=== PATIENT | male | born 1935 | race Caucasian/White ===

== ENCOUNTER 2020-06-19 22:24 | Inpatient (IN) ==
[2020-06-20] MEDS ORDERED: Orphenadrine 60 MG/2 ML VIAL IM ONE (00:50)
[2020-06-20] MEDS ORDERED: *HR* HYDROmorphone (PF) 1 MG/ML SYRINGE IM ONE (00:50)
[2020-06-20] MEDS ORDERED: Ondansetron ODT 4 MG TAB.RAPDIS SL ONE (00:50)
[2020-06-20] MEDS ORDERED: Dexamethasone 4 MG/ML VIAL PO ONE (01:17)
[2020-06-20] MEDS ORDERED: Ondansetron ODT 4 MG TAB.RAPDIS SL PRN (03:51)
[2020-06-20] MEDS ORDERED: *HR* HYDROcodone/Acet 5/325 mg TABLET PO PRN (03:51)
[2020-06-20] MEDS ORDERED: Naloxone 0.4 MG/ML INJ IVP PRN (03:51)
[2020-06-20] MEDS ORDERED: *HR* OxyCODONE Immed Rel 5 MG TABLET PO PRN (03:51)
[2020-06-20 05:07] LABS: Bilirubin,Urine Negative (Negative); Blood,Urine Negative (Negative); Clarity,Urine Clear (Clear); Color,Urine Yellow (Yellow); Glucose,Urine (UA) Normal (Normal); Ketones,Urine Negative (Negative); Leukocyte Esterase,Urine Negative (Negative); Nitrite,Urine Negative (Negative); Protein,Urine Negative (Neg-Trace); Urobilinogen,Urine Normal (Normal)
[2020-06-20 06:08] LABS: Basophils % 0.4 %; Eosinophils # 0.1 K/mcL (0.0-0.6); Eosinophils % 0.7 %; Hematocrit 37.8 % (37.5-50.1); Hemoglobin 12.8 g/dL (12.9-16.9); Immature Granulocytes % 0.6 % (0-4); Lymphocytes # 0.5 K/mcL (0.6-4.6); Lymphocytes % 7.2 %; Mean Corpuscular HGB Conc 33.9 g/dL (31.6-35.5); Mean Corpuscular Hemoglobin 29.9 pg (28.0-33.3); Mean Corpuscular Volume 88.3 fL (83.0-100.0); Mean Platelet Volume 8.7 fL (9.4-12.4); Monocytes # 0.2 K/mcL (0.0-1.3); Monocytes % 2.6 %; Platelet Count 222 K/mcL (140-400); Red Blood Count 4.28 M/mcL (4.19-5.50); Red Cell Distribution Width 12.9 % (11.5-14.5); Segmented Neutrophils % 88.5 %; White Blood Count 6.8 K/mcL (4.3-11.1)
[2020-06-20 06:14] LABS: INR 1.1
[2020-06-20 06:17] LABS: Activated Partial Thrombo Time 32.4 Seconds (26.0-36.0)
[2020-06-20 06:27] LABS: Calcium 9.4 mg/dL (8.6-10.3); Magnesium 1.9 mg/dL (1.6-2.6); Potassium 4.5 mEq/L (3.5-5.1)
[2020-06-20] MEDS ORDERED: (Alfuzosin Hcl [Uroxatral] 10 MG Tab.Er.24h) PO SCH (09:00)
[2020-06-20] MEDS: lisinopriL 20 MG TABLET PO SCH (09:41)
[2020-06-20] MEDS: Aspirin 81 MG TAB.CHEW PO SCH (09:41)
[2020-06-20] MEDS: Ascorbic Acid 500 MG TABLET PO SCH (09:41)
[2020-06-20] MEDS: Metoprolol XL (24 HR) Succ 50 MG TAB.ER.24H PO SCH (09:41)
[2020-06-20] MEDS: Multivit/Ca/Min/Fe/FA 1 TAB TABLET PO SCH (09:41)
[2020-06-20] MEDS: Loratadine 10 MG TABLET PO SCH (09:41)
[2020-06-20] MEDS: polyethylene glycoL 3350 17 GM POWD.PACK PO SCH (09:42)
[2020-06-20] MEDS: Cyanocobalamin (B-12) 1,000 MCG TABLET PO SCH (09:42)
[2020-06-20] MEDS: (Ezetimibe [Zetia] 10 MG Tablet) PO SCH (09:42)
[2020-06-20 12:13] LABS: Basophils % 0.2 %; Hematocrit 39.6 % (37.5-50.1); Hemoglobin 13.4 g/dL (12.9-16.9); Immature Granulocytes % 0.5 % (0-4); Lymphocytes # 0.4 K/mcL (0.6-4.6); Lymphocytes % 7.1 %; Mean Corpuscular HGB Conc 33.8 g/dL (31.6-35.5); Mean Corpuscular Hemoglobin 30.2 pg (28.0-33.3); Mean Corpuscular Volume 89.2 fL (83.0-100.0); Mean Platelet Volume 8.6 fL (9.4-12.4); Monocytes # 0.2 K/mcL (0.0-1.3); Monocytes % 4.2 %; Neutrophils # 4.8 K/mcL (1.6-8.9); Platelet Count 247 K/mcL (140-400); Red Blood Count 4.44 M/mcL (4.19-5.50); Red Cell Distribution Width 12.7 % (11.5-14.5); White Blood Count 5.5 K/mcL (4.3-11.1)
[2020-06-20] MEDS: Acetaminophen 325 MG TABLET PO PRN (17:00)
[2020-06-20] MEDS: MethylPREDNISolone 40 MG/ML VIAL IVP SCH (18:10)
[2020-06-20 20:15] LABS: Basophils % 0.1 %; Eosinophils % 0.1 %; Hemoglobin 12.9 g/dL (12.9-16.9); Immature Granulocytes % 0.5 % (0-4); Lymphocytes # 0.6 K/mcL (0.6-4.6); Lymphocytes % 6.5 %; Mean Corpuscular HGB Conc 33.9 g/dL (31.6-35.5); Mean Corpuscular Hemoglobin 30.1 pg (28.0-33.3); Mean Corpuscular Volume 88.6 fL (83.0-100.0); Mean Platelet Volume 8.8 fL (9.4-12.4); Monocytes # 0.6 K/mcL (0.0-1.3); Monocytes % 6.8 %; Platelet Count 257 K/mcL (140-400); Red Blood Count 4.29 M/mcL (4.19-5.50); White Blood Count 9.3 K/mcL (4.3-11.1)
[2020-06-20] MEDS: *HR* HYDROcodone/Acet 5/325 mg TABLET PO PRN (21:45)
[2020-06-21] MEDS ORDERED: Haloperidol Lactate 5 MG/ML VIAL IM ONE (03:34)
[2020-06-21] MEDS: *HR* Enoxaparin 40 MG/0.4 ML SYRINGE SQ SCH ×2 (05:24→06:35)
[2020-06-21] MEDS: MethylPREDNISolone 40 MG/ML VIAL IVP SCH (05:24)
[2020-06-21] MEDS: *HR* HYDROcodone/Acet 5/325 mg TABLET PO PRN ×3 (06:14→20:47)
[2020-06-21] MEDS ORDERED: predniSONE 20 MG TABLET PO SCH (09:00)
[2020-06-21] MEDS: Aspirin 81 MG TAB.CHEW PO SCH (09:08)
[2020-06-21] MEDS: lisinopriL 20 MG TABLET PO SCH (09:08)
[2020-06-21] MEDS: Ascorbic Acid 500 MG TABLET PO SCH (09:08)
[2020-06-21] MEDS: Loratadine 10 MG TABLET PO SCH (09:08)
[2020-06-21] MEDS: Multivit/Ca/Min/Fe/FA 1 TAB TABLET PO SCH (09:08)
[2020-06-21] MEDS: Cyanocobalamin (B-12) 1,000 MCG TABLET PO SCH (09:08)
[2020-06-21] MEDS: Metoprolol XL (24 HR) Succ 50 MG TAB.ER.24H PO SCH (09:08)
[2020-06-21] MEDS: polyethylene glycoL 3350 17 GM POWD.PACK PO SCH (09:08)
[2020-06-21] MEDS: (Ezetimibe [Zetia] 10 MG Tablet) PO SCH (09:09)
[2020-06-21 11:34] LABS: Hematocrit 38.2 % (37.5-50.1); Mean Corpuscular Hemoglobin 30.2 pg (28.0-33.3); Mean Corpuscular Volume 88.6 fL (83.0-100.0); Platelet Count 278 K/mcL (140-400); Red Blood Count 4.31 M/mcL (4.19-5.50); Red Cell Distribution Width 12.9 % (11.5-14.5); White Blood Count 11.2 K/mcL (4.3-11.1)
[2020-06-21 11:55] LABS: Albumin 4.2 g/dL (3.5-5.7); Albumin/Globulin Ratio 1.8 (1.1-2.2); Bilirubin,Total 0.8 mg/dL (0.3-1.0); Calcium 9.8 mg/dL (8.6-10.3); Globulin 2.4 g/dL (2.4-3.5); Magnesium 1.9 mg/dL (1.6-2.6); Potassium 4.5 mEq/L (3.5-5.1); Total Protein 6.6 g/dL (6.4-8.9)
[2020-06-21] MEDS ORDERED: Haloperidol Lactate 5 MG/ML VIAL IM PRN (15:07)
[2020-06-21] MEDS: predniSONE 20 MG TABLET PO SCH (16:42)
[2020-06-21] MEDS: Melatonin 3 MG TABLET PO SCH (20:45)
[2020-06-21] MEDS: QUEtiapine Fumarate 25 MG TABLET PO SCH (20:48)
[2020-06-22] MEDS: *HR* Enoxaparin 40 MG/0.4 ML SYRINGE SQ SCH (06:56)
[2020-06-22] MEDS: Aspirin 81 MG TAB.CHEW PO SCH (09:45)
[2020-06-22] MEDS: Metoprolol XL (24 HR) Succ 50 MG TAB.ER.24H PO SCH (09:45)
[2020-06-22] MEDS: Loratadine 10 MG TABLET PO SCH (09:45)
[2020-06-22] MEDS: lisinopriL 20 MG TABLET PO SCH (09:45)
[2020-06-22] MEDS: Ascorbic Acid 500 MG TABLET PO SCH (09:45)
[2020-06-22] MEDS: Multivit/Ca/Min/Fe/FA 1 TAB TABLET PO SCH (09:45)
[2020-06-22] MEDS: predniSONE 20 MG TABLET PO SCH (09:45)
[2020-06-22] MEDS: Cyanocobalamin (B-12) 1,000 MCG TABLET PO SCH (09:45)
[2020-06-22] MEDS: polyethylene glycoL 3350 17 GM POWD.PACK PO SCH (09:46)
[2020-06-22] MEDS: Acetaminophen 325 MG TABLET PO PRN (15:28)
[2020-06-22] MEDS: Melatonin 3 MG TABLET PO SCH (22:07)
[2020-06-22] MEDS: QUEtiapine Fumarate 25 MG TABLET PO SCH (22:07)
[2020-06-23] MEDS: *HR* HYDROcodone/Acet 5/325 mg TABLET PO PRN ×2 (05:37→21:07)
[2020-06-23] MEDS: *HR* Enoxaparin 40 MG/0.4 ML SYRINGE SQ SCH (05:38)
[2020-06-23 05:55] LABS: Basophils % 0.3 %; Eosinophils % 0.3 %; Hemoglobin 13.8 g/dL (12.9-16.9); Immature Granulocytes % 0.6 % (0-4); Lymphocytes # 1.6 K/mcL (0.6-4.6); Lymphocytes % 15.7 %; Mean Corpuscular HGB Conc 33.7 g/dL (31.6-35.5); Mean Corpuscular Hemoglobin 29.9 pg (28.0-33.3); Mean Corpuscular Volume 88.7 fL (83.0-100.0); Mean Platelet Volume 8.9 fL (9.4-12.4); Monocytes # 1.3 K/mcL (0.0-1.3); Monocytes % 12.7 %; Neutrophils # 7.1 K/mcL (1.6-8.9); Platelet Count 309 K/mcL (140-400); Red Blood Count 4.62 M/mcL (4.19-5.50); Red Cell Distribution Width 12.9 % (11.5-14.5); Segmented Neutrophils % 70.4 %
[2020-06-23 06:15] LABS: BUN/Creatinine Ratio 31 (6-26); Blood Urea Nitrogen 39 mg/dL (8-23); Calcium 9.9 mg/dL (8.6-10.3); Carbon Dioxide 27 mEq/L (23-29); Chloride 100 mEq/L (98-107); Glucose 109 mg/dL (70-105); Osmolality,Calculated 290 (280-300); Potassium 4.4 mEq/L (3.5-5.1); Sodium 135 mEq/L (136-145); eGFR For African Americans > 60 (> 60); eGFR For Non-African Americans 54 (> 60)
[2020-06-23] MEDS: Loratadine 10 MG TABLET PO SCH (08:41)
[2020-06-23] MEDS: predniSONE 20 MG TABLET PO SCH (08:41)
[2020-06-23] MEDS: Ascorbic Acid 500 MG TABLET PO SCH (08:41)
[2020-06-23] MEDS: Aspirin 81 MG TAB.CHEW PO SCH (08:41)
[2020-06-23] MEDS: Cyanocobalamin (B-12) 1,000 MCG TABLET PO SCH (08:41)
[2020-06-23] MEDS: polyethylene glycoL 3350 17 GM POWD.PACK PO SCH ×2 (08:42→08:51)
[2020-06-23] MEDS: Metoprolol XL (24 HR) Succ 50 MG TAB.ER.24H PO SCH (08:42)
[2020-06-23] MEDS: lisinopriL 20 MG TABLET PO SCH (08:42)
[2020-06-23] MEDS: Multivit/Ca/Min/Fe/FA 1 TAB TABLET PO SCH (08:45)
[2020-06-23] MEDS: Acetaminophen 325 MG TABLET PO PRN (15:58)
[2020-06-23] MEDS: QUEtiapine Fumarate 25 MG TABLET PO SCH (21:07)
[2020-06-23] MEDS: Melatonin 3 MG TABLET PO SCH (21:08)
[2020-06-24] MEDS: *HR* Enoxaparin 40 MG/0.4 ML SYRINGE SQ SCH (04:38)
[2020-06-24] MEDS: Cyanocobalamin (B-12) 1,000 MCG TABLET PO SCH (08:32)
[2020-06-24] MEDS: Aspirin 81 MG TAB.CHEW PO SCH (08:32)
[2020-06-24] MEDS: lisinopriL 20 MG TABLET PO SCH (08:33)
[2020-06-24] MEDS: Loratadine 10 MG TABLET PO SCH (08:33)
[2020-06-24] MEDS: Metoprolol XL (24 HR) Succ 50 MG TAB.ER.24H PO SCH (08:33)
[2020-06-24] MEDS: Ascorbic Acid 500 MG TABLET PO SCH (08:33)
[2020-06-24] MEDS: predniSONE 20 MG TABLET PO SCH (08:33)
[2020-06-24] MEDS: Multivit/Ca/Min/Fe/FA 1 TAB TABLET PO SCH (08:33)
[2020-06-24] MEDS: polyethylene glycoL 3350 17 GM POWD.PACK PO SCH (15:49)
[2020-06-24 16:13] VITALS: BP 177/99
== END 2020-06-24 16:25 | disposition other institution (70) | DRG 554 ==
LOC: INPGRE 22:24 → EMEROOGRE 22:24 → INPGRE 06-20 04:00 → SUATTDRO 06-20 15:46
PROVIDERS: ADMIT Student in an Organized Health Care Education/Training Program; ATTEND Family Medicine

== ENCOUNTER 2020-06-24 14:12 | Inpatient (IN) ==
[2020-06-24] MEDS ORDERED: *HR* HYDROcodone/Acet 5/325 mg TABLET PO SCH (17:00)
[2020-06-24] MEDS: *HR* HYDROcodone/Acet 5/325 mg TABLET PO PRN (20:57)
[2020-06-24] MEDS ORDERED: MOM Conc 10 ML UD.LIQ PO ONE (23:15)
[2020-06-25 05:06] LABS: Basophils % 0.2 %; Eosinophils # 0.1 K/mcL (0.0-0.6); Eosinophils % 0.7 %; Hematocrit 39.5 % (37.5-50.1); Hemoglobin 13.3 g/dL (12.9-16.9); Immature Granulocytes % 0.8 % (0-4); Lymphocytes # 1.5 K/mcL (0.6-4.6); Lymphocytes % 17.2 %; Mean Corpuscular HGB Conc 33.7 g/dL (31.6-35.5); Mean Corpuscular Hemoglobin 30.1 pg (28.0-33.3); Mean Corpuscular Volume 89.4 fL (83.0-100.0); Monocytes # 1.1 K/mcL (0.0-1.3); Monocytes % 13.2 %; Neutrophils # 5.8 K/mcL (1.6-8.9); Platelet Count 308 K/mcL (140-400); Red Blood Count 4.42 M/mcL (4.19-5.50); Red Cell Distribution Width 12.8 % (11.5-14.5); Segmented Neutrophils % 67.9 %; White Blood Count 8.6 K/mcL (4.3-11.1)
[2020-06-25 05:20] LABS: BUN/Creatinine Ratio 30 (6-26); Blood Urea Nitrogen 34 mg/dL (8-23); Calcium 9.5 mg/dL (8.6-10.3); Carbon Dioxide 29 mEq/L (23-29); Chloride 96 mEq/L (98-107); Glucose 103 mg/dL (70-105); Osmolality,Calculated 284 (280-300); Potassium 4.2 mEq/L (3.5-5.1); Sodium 133 mEq/L (136-145); eGFR For African Americans > 60 (> 60); eGFR For Non-African Americans > 60 (> 60)
[2020-06-25] MEDS: *HR* Enoxaparin 40 MG/0.4 ML SYRINGE SQ SCH (06:25)
[2020-06-25] MEDS: *HR* HYDROcodone/Acet 5/325 mg TABLET PO PRN (06:25)
[2020-06-25] MEDS: Ascorbic Acid 500 MG TABLET PO SCH (08:48)
[2020-06-25] MEDS: Aspirin 81 MG TAB.CHEW PO SCH (08:48)
[2020-06-25] MEDS: Metoprolol XL (24 HR) Succ 50 MG TAB.ER.24H PO SCH (08:49)
[2020-06-25] MEDS: (Ezetimibe [Zetia] 10 MG Tablet) PO SCH (08:49)
[2020-06-25] MEDS: lisinopriL 10 MG TABLET PO SCH (08:49)
[2020-06-25] MEDS: Multivit/Ca/Min/Fe/FA 1 TAB TABLET PO SCH (08:49)
[2020-06-25] MEDS: Loratadine 10 MG TABLET PO SCH (08:49)
[2020-06-25] MEDS: polyethylene glycoL 3350 17 GM POWD.PACK PO SCH (08:52)
[2020-06-25] MEDS: CYANOCOBALAMIN 100 MCG PO SCH (08:52)
[2020-06-25] MEDS ORDERED: predniSONE 20 MG TABLET PO SCH (09:00)
[2020-06-26] MEDS: Melatonin 3 MG TABLET PO PRN ×2 (01:03→20:33)
[2020-06-26] MEDS: *HR* HYDROcodone/Acet 5/325 mg TABLET PO PRN ×3 (03:15→20:37)
[2020-06-26] MEDS: Multivit/Ca/Min/Fe/FA 1 TAB TABLET PO SCH (08:37)
[2020-06-26] MEDS: Aspirin 81 MG TAB.CHEW PO SCH (08:37)
[2020-06-26] MEDS: lisinopriL 10 MG TABLET PO SCH (08:37)
[2020-06-26] MEDS: Metoprolol XL (24 HR) Succ 50 MG TAB.ER.24H PO SCH (08:37)
[2020-06-26] MEDS: *HR* Enoxaparin 40 MG/0.4 ML SYRINGE SQ SCH (08:38)
[2020-06-26] MEDS: predniSONE 20 MG TABLET PO SCH (08:38)
[2020-06-26] MEDS: Ascorbic Acid 500 MG TABLET PO SCH (08:38)
[2020-06-26] MEDS: Loratadine 10 MG TABLET PO SCH (08:38)
[2020-06-26] MEDS: CYANOCOBALAMIN 100 MCG PO SCH (08:40)
[2020-06-26] MEDS: (Ezetimibe [Zetia] 10 MG Tablet) PO SCH (08:40)
[2020-06-26] MEDS: polyethylene glycoL 3350 17 GM POWD.PACK PO SCH (08:52)
[2020-06-26] MEDS: QUEtiapine Fumarate 25 MG TABLET PO SCH (22:06)
[2020-06-27] MEDS: *HR* HYDROcodone/Acet 5/325 mg TABLET PO PRN (04:51)
[2020-06-27] MEDS: *HR* Enoxaparin 40 MG/0.4 ML SYRINGE SQ SCH (04:51)
[2020-06-27] MEDS: polyethylene glycoL 3350 17 GM POWD.PACK PO SCH (09:02)
[2020-06-27] MEDS: Aspirin 81 MG TAB.CHEW PO SCH (09:03)
[2020-06-27] MEDS: Multivit/Ca/Min/Fe/FA 1 TAB TABLET PO SCH (09:03)
[2020-06-27] MEDS: lisinopriL 10 MG TABLET PO SCH (09:03)
[2020-06-27] MEDS: Loratadine 10 MG TABLET PO SCH (09:03)
[2020-06-27] MEDS: Metoprolol XL (24 HR) Succ 50 MG TAB.ER.24H PO SCH (09:03)
[2020-06-27] MEDS: predniSONE 20 MG TABLET PO SCH (09:03)
[2020-06-27] MEDS: Ascorbic Acid 500 MG TABLET PO SCH (09:03)
[2020-06-27] MEDS: CYANOCOBALAMIN 100 MCG PO SCH (09:04)
[2020-06-27] MEDS: (Ezetimibe [Zetia] 10 MG Tablet) PO SCH (09:19)
[2020-06-27] MEDS: Melatonin 3 MG TABLET PO PRN (20:38)
[2020-06-27] MEDS: QUEtiapine Fumarate 25 MG TABLET PO SCH (20:38)
[2020-06-28] MEDS: *HR* Enoxaparin 40 MG/0.4 ML SYRINGE SQ SCH (04:44)
[2020-06-28] MEDS: Aspirin 81 MG TAB.CHEW PO SCH (09:12)
[2020-06-28] MEDS: Metoprolol XL (24 HR) Succ 50 MG TAB.ER.24H PO SCH (09:13)
[2020-06-28] MEDS: Multivit/Ca/Min/Fe/FA 1 TAB TABLET PO SCH (09:14)
[2020-06-28] MEDS: polyethylene glycoL 3350 17 GM POWD.PACK PO SCH (09:14)
[2020-06-28] MEDS: lisinopriL 10 MG TABLET PO SCH (09:14)
[2020-06-28] MEDS: Loratadine 10 MG TABLET PO SCH (09:14)
[2020-06-28] MEDS: Ascorbic Acid 500 MG TABLET PO SCH (09:14)
[2020-06-28] MEDS: CYANOCOBALAMIN 100 MCG PO SCH (10:15)
[2020-06-28] MEDS: (Ezetimibe [Zetia] 10 MG Tablet) PO SCH (10:16)
[2020-06-28] MEDS: predniSONE 20 MG TABLET PO SCH (10:16)
[2020-06-28] MEDS: Acetaminophen 325 MG TABLET PO PRN (19:30)
[2020-06-28] MEDS: QUEtiapine Fumarate 25 MG TABLET PO SCH (19:33)
[2020-06-28] MEDS: Melatonin 3 MG TABLET PO PRN (19:33)
[2020-06-29] MEDS: *HR* HYDROcodone/Acet 5/325 mg TABLET PO PRN ×2 (05:56→20:33)
[2020-06-29] MEDS: *HR* Enoxaparin 40 MG/0.4 ML SYRINGE SQ SCH (05:56)
[2020-06-29] MEDS: Metoprolol XL (24 HR) Succ 50 MG TAB.ER.24H PO SCH (10:08)
[2020-06-29] MEDS: Loratadine 10 MG TABLET PO SCH (10:08)
[2020-06-29] MEDS: Aspirin 81 MG TAB.CHEW PO SCH (10:08)
[2020-06-29] MEDS: predniSONE 20 MG TABLET PO SCH (10:08)
[2020-06-29] MEDS: Ascorbic Acid 500 MG TABLET PO SCH (10:08)
[2020-06-29] MEDS: Multivit/Ca/Min/Fe/FA 1 TAB TABLET PO SCH (10:08)
[2020-06-29] MEDS: CYANOCOBALAMIN 100 MCG PO SCH (10:09)
[2020-06-29] MEDS: (Ezetimibe [Zetia] 10 MG Tablet) PO SCH (10:09)
[2020-06-29] MEDS: polyethylene glycoL 3350 17 GM POWD.PACK PO SCH (10:09)
[2020-06-29] MEDS: lisinopriL 10 MG TABLET PO SCH (10:09)
[2020-06-29] MEDS: QUEtiapine Fumarate 25 MG TABLET PO SCH (20:33)
[2020-06-29] MEDS: Melatonin 3 MG TABLET PO PRN (20:33)
[2020-06-30] MEDS: *HR* Enoxaparin 40 MG/0.4 ML SYRINGE SQ SCH (06:58)
[2020-06-30] MEDS: *HR* HYDROcodone/Acet 5/325 mg TABLET PO PRN (06:58)
[2020-06-30] MEDS: polyethylene glycoL 3350 17 GM POWD.PACK PO SCH (09:50)
[2020-06-30] MEDS: Aspirin 81 MG TAB.CHEW PO SCH (09:50)
[2020-06-30] MEDS: lisinopriL 10 MG TABLET PO SCH (09:50)
[2020-06-30] MEDS: Multivit/Ca/Min/Fe/FA 1 TAB TABLET PO SCH (09:50)
[2020-06-30] MEDS: predniSONE 20 MG TABLET PO SCH (09:50)
[2020-06-30] MEDS: Ascorbic Acid 500 MG TABLET PO SCH (09:50)
[2020-06-30] MEDS: Loratadine 10 MG TABLET PO SCH (09:50)
[2020-06-30] MEDS: Metoprolol XL (24 HR) Succ 50 MG TAB.ER.24H PO SCH (09:50)
[2020-06-30] MEDS: (Ezetimibe [Zetia] 10 MG Tablet) PO SCH (09:51)
[2020-06-30] MEDS: CYANOCOBALAMIN 100 MCG PO SCH (09:51)
[2020-06-30] MEDS: Melatonin 3 MG TABLET PO PRN (21:22)
[2020-06-30] MEDS: Acetaminophen 325 MG TABLET PO PRN (21:23)
[2020-06-30] MEDS: QUEtiapine Fumarate 25 MG TABLET PO SCH (21:23)
[2020-07-01] MEDS: *HR* HYDROcodone/Acet 5/325 mg TABLET PO PRN ×2 (01:51→13:26)
[2020-07-01 04:59] LABS: Hematocrit 37.4 % (37.5-50.1); Hemoglobin 12.6 g/dL (12.9-16.9); Mean Corpuscular HGB Conc 33.7 g/dL (31.6-35.5); Mean Corpuscular Hemoglobin 30.4 pg (28.0-33.3); Mean Corpuscular Volume 90.1 fL (83.0-100.0); Platelet Count 281 K/mcL (140-400); Red Blood Count 4.15 M/mcL (4.19-5.50); Red Cell Distribution Width 13.1 % (11.5-14.5); White Blood Count 9.7 K/mcL (4.3-11.1)
[2020-07-01 05:16] LABS: Alanine Aminotransferase 18 Units/L (7-52); Albumin 3.5 g/dL (3.5-5.7); Albumin/Globulin Ratio 2.1 (1.1-2.2); Alkaline Phosphatase 54 Units/L (34-104); Aspartate Amino Transferase 13 Units/L (13-39); BUN/Creatinine Ratio 28 (6-26); Bilirubin,Total 0.7 mg/dL (0.3-1.0); Blood Urea Nitrogen 30 mg/dL (8-23); Calcium 8.9 mg/dL (8.6-10.3); Carbon Dioxide 27 mEq/L (23-29); Chloride 98 mEq/L (98-107); Globulin 1.7 g/dL (2.4-3.5); Glucose 117 mg/dL (70-105); Magnesium 1.9 mg/dL (1.6-2.6); Osmolality,Calculated 281 (280-300); Potassium 4.3 mEq/L (3.5-5.1); Sodium 132 mEq/L (136-145); Total Protein 5.2 g/dL (6.4-8.9); eGFR For African Americans > 60 (> 60); eGFR For Non-African Americans > 60 (> 60)
[2020-07-01] MEDS: Acetaminophen 325 MG TABLET PO PRN ×2 (05:18→21:35)
[2020-07-01] MEDS: *HR* Enoxaparin 40 MG/0.4 ML SYRINGE SQ SCH (05:19)
[2020-07-01] MEDS: Loratadine 10 MG TABLET PO SCH (09:15)
[2020-07-01] MEDS: Multivit/Ca/Min/Fe/FA 1 TAB TABLET PO SCH (09:15)
[2020-07-01] MEDS: Metoprolol XL (24 HR) Succ 50 MG TAB.ER.24H PO SCH (09:15)
[2020-07-01] MEDS: predniSONE 20 MG TABLET PO SCH (09:15)
[2020-07-01] MEDS: Aspirin 81 MG TAB.CHEW PO SCH (09:15)
[2020-07-01] MEDS: lisinopriL 10 MG TABLET PO SCH (09:15)
[2020-07-01] MEDS: Ascorbic Acid 500 MG TABLET PO SCH (09:15)
[2020-07-01] MEDS: CYANOCOBALAMIN 100 MCG PO SCH (09:20)
[2020-07-01] MEDS: (Ezetimibe [Zetia] 10 MG Tablet) PO SCH (09:20)
[2020-07-01] MEDS: polyethylene glycoL 3350 17 GM POWD.PACK PO SCH (09:20)
[2020-07-01] MEDS: QUEtiapine Fumarate 25 MG TABLET PO SCH (21:35)
[2020-07-01] MEDS: Melatonin 3 MG TABLET PO PRN (21:35)
[2020-07-02] MEDS: Acetaminophen 325 MG TABLET PO PRN (04:32)
[2020-07-02] MEDS: *HR* Enoxaparin 40 MG/0.4 ML SYRINGE SQ SCH (04:32)
[2020-07-02 07:04] VITALS: BP 169/89
[2020-07-02] MEDS: predniSONE 20 MG TABLET PO SCH (09:12)
[2020-07-02] MEDS: Ascorbic Acid 500 MG TABLET PO SCH (09:12)
[2020-07-02] MEDS: (Ezetimibe [Zetia] 10 MG Tablet) PO SCH (09:12)
[2020-07-02] MEDS: lisinopriL 10 MG TABLET PO SCH (09:12)
[2020-07-02] MEDS: Loratadine 10 MG TABLET PO SCH (09:12)
[2020-07-02] MEDS: Aspirin 81 MG TAB.CHEW PO SCH (09:12)
[2020-07-02] MEDS: Metoprolol XL (24 HR) Succ 50 MG TAB.ER.24H PO SCH (09:12)
[2020-07-02] MEDS: Multivit/Ca/Min/Fe/FA 1 TAB TABLET PO SCH (09:12)
[2020-07-02] MEDS: CYANOCOBALAMIN 100 MCG PO SCH (09:12)
[2020-07-02] MEDS: polyethylene glycoL 3350 17 GM POWD.PACK PO SCH (09:13)
[2020-07-02] MEDS: *HR* HYDROcodone/Acet 5/325 mg TABLET PO PRN (09:16)
== END 2020-07-02 16:08 | disposition home health service (06) | DRG 945 ==
LOC: INPGRE 16:35
PROVIDERS: ADMIT Family Medicine; ATTEND Family Medicine